=== PATIENT | male | born 2000 | race Caucasian/White ===

== ENCOUNTER 2022-03-29 07:24 | Day surgery (SDC) | payer OTHER, SELFPAY ==
[2022-03-29] MEDS ORDERED: EPINEPHrine 1 MG/ML AMP ONE (09:46)
[2022-03-29] MEDS ORDERED: Bupivacaine 0.25% HCL 30 ML VIAL ONE (09:46)
[2022-03-29] MEDS ORDERED: fentaNYL Citrate/PF 100 MCG/2 ML SYRINGE ONE (09:53)
[2022-03-29] MEDS ORDERED: Midazolam HCl 2 mg/2 ml Vial ONE (09:53)
[2022-03-29] MEDS ORDERED: Piperacillin/Tazobactam 3.375 GM VIAL ONE (09:55)
[2022-03-29] MEDS ORDERED: PHENYLEPHRINE-NS 100 MCG/ML 10 ML SYRINGE ONE (10:05)
[2022-03-29] MEDS ORDERED: Dexamethasone 20 MG/5 ML VIAL ONE (10:05)
[2022-03-29] MEDS ORDERED: Glycopyrrolate 0.2 MG/ML 5 ML SYRINGE ONE (10:05)
[2022-03-29] MEDS ORDERED: Ondansetron PF 4 MG/2 ML Vial ONE (10:05)
[2022-03-29] MEDS ORDERED: Lidocaine 1% PF 5 ML VIAL ONE (10:05)
[2022-03-29] MEDS ORDERED: NEOSTIGMINE 3 MG/3 ML SYR 3 MG/3 ML SYRINGE ONE (10:05)
[2022-03-29] MEDS ORDERED: Rocuronium Bromide 10 MG/ML (10ML VIAL) ONE (10:05)
[2022-03-29] MEDS ORDERED: PROPOFOL 200 MG/20 ML VIAL ONE (10:05)
[2022-03-29] MEDS ORDERED: Meperidine HCl/PF 25 MG/ML VIAL ONE (11:28)
[2022-03-29] MEDS ORDERED: HYDROcodone/Acetaminophen 5/325 mg Tablet ONE (13:46)
== END 2022-03-29 14:16 | disposition home or self-care (01) ==
LOC: SDC 07:24
PROVIDERS: ATTEND Surgery
PROC: 0DTJ4ZZ Resection of Appendix, Percutaneous Endoscopic Approach (ICD-10-PCS; principal; 2022-03-29)
DX: K35.30 Acute appendicitis with localized peritonitis, without perforation or gangrene (principal); K66.0 Peritoneal adhesions (postprocedural) (postinfection)
CPT/HCPCS: 88304; A4649; J0171; J1100; J2175; J2250; J2405; J2543; J2704; S0020